=== PATIENT | female | born 1980 | race Caucasian/White ===

== ENCOUNTER 2024-08-26 16:29 | Inpatient (IN) | payer MEDICARE, MEDICAID ==
[~2024-08-26] VITALS: Ht 154.9 cm; Wt 178.5 kg
[2024-08-26] MEDS: ACETAMINOPHEN 325 MG TAB PO ONE (17:07)
[2024-08-26 17:22] LABS: BASO # 0.1 10^3/uL (0.0-0.2); BASO % 0.4 % (0.0-1.0); EOS % 0.1 % (0.0-3.0); HEMATOCRIT 40.8 % (36.0-47.0); HEMOGLOBIN 13.7 g/dl (12.0-15.5); LYMPH # 0.8 10^3/uL (1.5-5.0); LYMPH % 5.6 % (24.0-44.0); MEAN CORPUSCULAR HGB CONC 33.6 g/dl (32.0-36.5); MEAN CORPUSCULAR VOLUME 92.3 fl (80.0-96.0); MONO # 0.5 10^3/uL (0.0-0.8); MONO % 3.8 % (2.0-8.0); NEUTROPHILS % 88.5 % (36.0-66.0); PLATELET COUNT, AUTOMATED 199 10^3/uL (150-450); RED BLOOD COUNT 4.42 10^6/uL (4.00-5.40); WHITE BLOOD COUNT 13.5 10^3/uL (4.0-10.0)
[2024-08-26 17:34] LABS: INR 1.06; PARTIAL THROMBOPLASTIN TIME 31.2 SECONDS (24.8-34.2); PROTHROMBIN TIME 14.1 SECONDS (12.5-14.5)
[2024-08-26 17:36] LABS: AMORPHOUS SEDIMENT MODERATE (NEGATIVE); APPEARANCE, URINE CLOUDY (CLEAR); BACTERIA, URINE AUTO NEGATIVE (NEGATIVE); BILIRUBIN, URINE AUTO NEGATIVE (NEGATIVE); BLOOD, URINE BLOOD 3+ (NEGATIVE); COLOR, URINE AMBER (YELLOW); GLUCOSE, URINE (UA) AUTO NEGATIVE (NEGATIVE); GRANULAR CAST, URINE AUTO 4 /LPF; KETONE, URINE AUTO TRACE mg/dL (NEGATIVE); LEUKOCYTE ESTERASE, URINE AUTO NEGATIVE (NEGATIVE); MUCUS, URINE SMALL (NEGATIVE); NITRITE, URINE AUTO NEGATIVE (NEGATIVE); PROTEIN, URINE AUTO 3+ mg/dL (NEGATIVE); RBC, URINE AUTO 1 /HPF (0-3); SPECIFIC GRAVITY URINE AUTO 1.024 (1.002-1.035); SQUAMOUS EPITHELIAL CELL UR AU 4 /HPF (0-6); UROBILINOGEN, URINE AUTO 0.2 mg/dL (0.0-2.0); WBC, URINE AUTO 3 /HPF (0-3)
[2024-08-26 17:42] LABS: C REACTIVE PROTEIN QUANTITATIV 27.7 MG/DL (<1.0)
[2024-08-26 18:23] LABS: ALBUMIN 2.9 G/DL (3.2-5.2); BILIRUBIN,DIRECT 0.2 MG/DL (<0.4); BILIRUBIN,TOTAL 0.7 MG/DL (0.3-1.2); CALCIUM LEVEL 8.8 MG/DL (8.5-10.1); CREATININE FOR GFR 1.09 MG/DL (0.55-1.30); GLOMERULAR FILTRATION RATE 57.5 (>58); POTASSIUM SERUM 5.4 MMOL/L (3.5-5.1); TOTAL PROTEIN 7.9 G/DL (5.7-8.2)
[2024-08-26] MEDS: ceFAZolin SOD 2 GM in IV 1 EA IV ONE (18:28)
[2024-08-26 18:38] LABS: PROCALCITONIN 18.9 ng/ml
[2024-08-26] MEDS ORDERED: PRAV10TA3 PO (20:32)
[2024-08-26] MEDS ORDERED: JANU100T PO (20:32)
[2024-08-26] MEDS ORDERED: GLIP5TAB20 PO (20:32)
[2024-08-26] MEDS ORDERED: FAMO40TA3 PO (20:32)
[2024-08-26] MEDS ORDERED: OMEP1CAP71 PO (20:32)
[2024-08-26] MEDS ORDERED: METF750T36 PO (20:32)
[2024-08-26] MEDS ORDERED: DEBL1TAB PO (20:32)
[2024-08-26] MEDS ORDERED: HOME MED LIST COMPLETE! XX SCH (20:35)
[2024-08-26] MEDS ORDERED: MOM 30ML SUSPENSION UDC PO PRN (20:50)
[2024-08-26] MEDS ORDERED: DEXTROSE 50% 50ML SYRINGE IV PRN (21:10)
[2024-08-26] MEDS ORDERED: GLUCOSE 4 GM CHEW PO PRN (21:10)
[2024-08-26] MEDS ORDERED: GLUCAGON INJ 1MG VIAL SC PRN (21:10)
[2024-08-26] MEDS: ACETAMINOPHEN 325 MG TAB PO PRN (22:53)
[2024-08-26 23:35] VITALS: BP 102/71; TEMP 102.1; O2SAT 93
[2024-08-26] MEDS: ENOXAPARIN 60MG/0.6ML SYRINGE (J1650 PER 10MG) SC SCH (23:58)
[2024-08-27] VITALS (14 sets, daily range): BP systolic 103–176; BP diastolic 58–100; TEMP 97.7–104.7; O2SAT 91–96
[2024-08-27] MEDS: INSULIN LISPRO (NovoLOG) PER UNIT SC SCH ×2 (00:23→08:09)
[2024-08-27] MEDS: IBUPROFEN 600MG TAB PO ONE (00:54)
[2024-08-27] MEDS: NS 1,000 ML IV SCH (02:01)
[2024-08-27] MEDS: ceFAZolin SOD 2 GM in IV 1 EA IV SCH (02:01)
[2024-08-27] MEDS: ACETAMINOPHEN *IV* 1,000 MG in IV 1 EA IV ONE (02:59)
[2024-08-27 06:23] LABS: HEMATOCRIT 37.1 % (36.0-47.0); HEMOGLOBIN 12.3 g/dl (12.0-15.5); MEAN CORPUSCULAR HGB CONC 33.2 g/dl (32.0-36.5); MEAN CORPUSCULAR VOLUME 93.5 fl (80.0-96.0); PLATELET COUNT, AUTOMATED 175 10^3/uL (150-450); RED BLOOD COUNT 3.97 10^6/uL (4.00-5.40); WHITE BLOOD COUNT 15.6 10^3/uL (4.0-10.0)
[2024-08-27 06:50] LABS: ALBUMIN 2.4 G/DL (3.2-5.2); ALKALINE PHOSPHATASE 75 U/L (35-104); ALT/SGPT 143 U/L (7.0-40); AST/SGOT 829 U/L (<34); BILIRUBIN,TOTAL 0.6 MG/DL (0.3-1.2); BLOOD UREA NITROGEN 26 MG/DL (9-23); CALCIUM LEVEL 8.4 MG/DL (8.5-10.1); CARBON DIOXIDE LEVEL 24 MMOL/L (20-31); CHLORIDE LEVEL 102 MMOL/L (98-107); CREATININE FOR GFR 1.81 MG/DL (0.55-1.30); GLUCOSE, FASTING 144 MG/DL (60-100); MAGNESIUM LEVEL 1.8 MG/DL (1.8-2.4); POTASSIUM SERUM 4.2 MMOL/L (3.5-5.1); SODIUM LEVEL 137 MMOL/L (136-145); TOTAL PROTEIN 6.5 G/DL (5.7-8.2)
[2024-08-27] MEDS: PRAVASTATIN 10 MG TAB PO SCH (08:10)
[2024-08-27] MEDS: PIPERACILLIN/TAZOBACTAM SOD 3.375 GM in DEXTROSE 5% (D5W) ADV/MINI-BAG 50 ML IV SCH (08:10)
[2024-08-27] MEDS: FAMOTIDINE 20 MG TAB PO SCH (08:10)
[2024-08-27] MEDS ORDERED: LORazepam 2 MG TAB PO PRN (15:10)
[2024-08-27 15:53] LABS: HEPATITIS B SURFACE ANTIGEN NEGATIVE (NEGATIVE)
[2024-08-27] MEDS ORDERED: VANCOMYCIN HCL 500 MG in DEXTROSE 5% (D5W) MINI-BAG PLU 100 ML IV SCH (16:05)
[2024-08-27 16:13] LABS: HEPATITIS B CORE ANTIBODY IGM NEGATIVE (NEGATIVE); HEPATITIS C VIRUS ABY INDEX 0.03 INDEX (<0.8)
[2024-08-27] MEDS: MULTIVITAMINS/MINERALS THERAP 1 TAB PO SCH (16:42)
[2024-08-27] MEDS: ACETAMINOPHEN 325 MG TAB PO ONE (16:42)
[2024-08-27] MEDS: FOLIC ACID 1MG TAB PO SCH (16:43)
[2024-08-27] MEDS: THIAMINE 100 MG TAB PO SCH (16:43)
[2024-08-27] MEDS: VANCOMYCIN 2,000 MG/400 ML IV BAG *LOAD IV ONE (17:09)
[2024-08-27] MEDS: KETOROLAC 30 MG/ML 1ML VIAL IV ONE ×2 (18:27→23:54)
[2024-08-27 18:56] LABS: HEMATOCRIT 35.7 % (36.0-47.0); HEMOGLOBIN 11.9 g/dl (12.0-15.5); MEAN CORPUSCULAR HEMOGLOBIN 30.7 pg (27.0-33.0); MEAN CORPUSCULAR HGB CONC 33.3 g/dl (32.0-36.5); MEAN CORPUSCULAR VOLUME 92.2 fl (80.0-96.0); PLATELET COUNT, AUTOMATED 160 10^3/uL (150-450); RED BLOOD COUNT 3.87 10^6/uL (4.00-5.40); WHITE BLOOD COUNT 18.6 10^3/uL (4.0-10.0)
[2024-08-27 18:57] LABS: VENOUS O2 SATURATION 97.7 % (60.0-80.0); VENOUS PARTIAL PRESSURE CO2 29.9 mmHg (38.0-50.0); VENOUS PARTIAL PRESSURE O2 113.4 mmHg (30.0-50.0); VENOUS PH 7.444 UNITS (7.330-7.430)
[2024-08-27 19:28] LABS: CK-MB VALUE MASS 8.2 NG/ML (<3.6)
[2024-08-27 19:30] LABS: ALBUMIN 2.1 G/DL (3.2-5.2); BILIRUBIN,TOTAL 0.5 MG/DL (0.3-1.2); CALCIUM LEVEL 7.4 MG/DL (8.5-10.1); CREATININE FOR GFR 2.35 MG/DL (0.55-1.30); GLOMERULAR FILTRATION RATE 23.7 (>58); POTASSIUM SERUM 4.2 MMOL/L (3.5-5.1); TOTAL PROTEIN 6.3 G/DL (5.7-8.2)
[2024-08-27 20:12] LABS: MB/CK RELATIVE INDEX 0.01 (< OR =4)
[2024-08-27] MEDS: DOXYCYCLINE HYCLATE 100MG TABLET PO SCH (20:32)
[2024-08-27] MEDS: HEPARIN SOD (PORCINE) 5000UNITS/ML 1ML VIAL/SYRINGE SQ SCH (21:32)
[2024-08-27] MEDS ORDERED: ALBUTEROL SULFATE 2.5MG/0.5ML INH NEB SOLN NEB PRN (21:55)
[2024-08-27 22:31] LABS: AMPHETAMINES LEVEL URINE NEGATIVE (NEGATIVE); BARBITURATES URINE NEGATIVE (NEGATIVE); BENZODIAZEPINES URINE NEGATIVE (NEGATIVE); CANNABINOIDS URINE NEGATIVE (NEGATIVE); COCAINE METABOLITE URINE NEGATIVE (NEGATIVE); METHADONE URINE NEGATIVE (NEGATIVE); OPIATES URINE NEGATIVE (NEGATIVE); PHENCYCLIDINE URINE NEGATIVE (NEGATIVE)
[2024-08-28] VITALS (15 sets, daily range): BP systolic 125–157; BP diastolic 56–88; TEMP 97.7–99.5; O2SAT 90–96
[2024-08-28 05:19] LABS: HEMATOCRIT 35.2 % (36.0-47.0); HEMOGLOBIN 11.4 g/dl (12.0-15.5); MEAN CORPUSCULAR HEMOGLOBIN 30.6 pg (27.0-33.0); MEAN CORPUSCULAR HGB CONC 32.4 g/dl (32.0-36.5); MEAN CORPUSCULAR VOLUME 94.4 fl (80.0-96.0); PLATELET COUNT, AUTOMATED 161 10^3/uL (150-450); RED BLOOD COUNT 3.73 10^6/uL (4.00-5.40)
[2024-08-28 05:44] LABS: ALBUMIN 1.9 G/DL (3.2-5.2); BILIRUBIN,TOTAL 0.6 MG/DL (0.3-1.2); CALCIUM LEVEL 7.6 MG/DL (8.5-10.1); CREATININE FOR GFR 3.25 MG/DL (0.55-1.30); GLOMERULAR FILTRATION RATE 16.3 (>58); POTASSIUM SERUM 4.6 MMOL/L (3.5-5.1); TOTAL PROTEIN 6.2 G/DL (5.7-8.2)
[2024-08-28] MEDS ORDERED: VANCOMYCIN INTERMITTENT/PULSE DOSING BY CLINICAL PHARMACIST PER DOSING PROTOCOL XX SCH ×2 (07:00→17:25)
[2024-08-28] MEDS: NS 1,000 ML IV SCH (11:15)
[2024-08-28] MEDS ORDERED: VANCOMYCIN 1,250 MG/250 ML IV BAG IV ONE (17:00)
[2024-08-29] VITALS (9 sets, daily range): BP systolic 134–168; BP diastolic 70–78; TEMP 97.9–98.7; O2SAT 91–96
[2024-08-29 07:33] LABS: HEMATOCRIT 34.1 % (36.0-47.0); HEMOGLOBIN 11.1 g/dl (12.0-15.5); MEAN CORPUSCULAR HEMOGLOBIN 30.7 pg (27.0-33.0); MEAN CORPUSCULAR HGB CONC 32.6 g/dl (32.0-36.5); MEAN CORPUSCULAR VOLUME 94.5 fl (80.0-96.0); PLATELET COUNT, AUTOMATED 204 10^3/uL (150-450); RED BLOOD COUNT 3.61 10^6/uL (4.00-5.40); WHITE BLOOD COUNT 16.8 10^3/uL (4.0-10.0)
[2024-08-29 07:55] LABS: BILIRUBIN,TOTAL 0.5 MG/DL (0.3-1.2); CALCIUM LEVEL 7.9 MG/DL (8.5-10.1); CREATININE FOR GFR 5.39 MG/DL (0.55-1.30); GLOMERULAR FILTRATION RATE 9.1 (>58); POTASSIUM SERUM 4.5 MMOL/L (3.5-5.1); TOTAL PROTEIN 6.6 G/DL (5.7-8.2)
[2024-08-29] MEDS ORDERED: HEPARIN 1,000UNITS/ML 10ML VIAL (FOR RADIOLOGY & DIALYSIS ONLY) IV PRN (09:35)
[2024-08-29] MEDS ORDERED: SODIUM CHLORIDE 0.9% 1000 ML IV PRN (09:35)
[2024-08-29 11:09] LABS: HEPATITIS B SURFACE ANTIBODY NEGATIVE (POSITIVE)
[2024-08-29] MEDS: HEPARIN 1,000UNITS/ML 10ML VIAL (FOR RADIOLOGY & DIALYSIS ONLY) IV STA (11:10)
[2024-08-29 11:23] LABS: HEPATITIS B SURFACE ANTIGEN NEGATIVE (NEGATIVE)
[2024-08-29 11:43] LABS: HEPATITIS B CORE ANTIBODY IGM NEGATIVE (NEGATIVE); HEPATITIS C VIRUS ABY INDEX 0.02 INDEX (<0.8)
[2024-08-29] MEDS: HEPARIN 1,000UNITS/ML 10ML VIAL (FOR RADIOLOGY & DIALYSIS ONLY) XX SCH (14:40)
[2024-08-29] MEDS: VANCOMYCIN/WATER FOR INJ 1,000 MG in IV 1 EA IV SCH (17:36)
[2024-08-29] MEDS: PIPERACILLIN/TAZOBACTAM SOD 4.5 GM in DEXTROSE 5% (D5W) ADV/MINI-BAG 50 ML IV SCH (18:56)
[2024-08-30] VITALS (8 sets, daily range): BP systolic 128–164; BP diastolic 63–82; TEMP 97.4–98.6; O2SAT 91–98
[2024-08-30 05:52] LABS: BASO % 0.2 % (0.0-1.0); EOS # 0.1 10^3/uL (0.0-0.5); EOS % 0.6 % (0.0-3.0); HEMOGLOBIN 11.2 g/dl (12.0-15.5); LYMPH # 1.2 10^3/uL (1.5-5.0); LYMPH % 8.6 % (24.0-44.0); MEAN CORPUSCULAR HEMOGLOBIN 30.8 pg (27.0-33.0); MEAN CORPUSCULAR HGB CONC 32.9 g/dl (32.0-36.5); MEAN CORPUSCULAR VOLUME 93.4 fl (80.0-96.0); MONO # 0.5 10^3/uL (0.0-0.8); MONO % 3.4 % (2.0-8.0); NEUTROPHILS # 12.3 10^3/uL (1.5-8.5); NEUTROPHILS % 85.9 % (36.0-66.0); PLATELET COUNT, AUTOMATED 268 10^3/uL (150-450); RED BLOOD COUNT 3.64 10^6/uL (4.00-5.40); WHITE BLOOD COUNT 14.3 10^3/uL (4.0-10.0)
[2024-08-30] MEDS ORDERED: SODIUM CHLORIDE 0.9% 1000 ML IV PRN (06:00)
[2024-08-30] MEDS ORDERED: HEPARIN 1,000UNITS/ML 10ML VIAL (FOR RADIOLOGY & DIALYSIS ONLY) IV PRN (06:00)
[2024-08-30 06:14] LABS: VANCOMYCIN RANDOM 25.9 UG/ML
[2024-08-30 06:16] LABS: BILIRUBIN,TOTAL 0.5 MG/DL (0.3-1.2); CALCIUM LEVEL 8.4 MG/DL (8.5-10.1); CREATININE FOR GFR 5.45 MG/DL (0.55-1.30); TOTAL PROTEIN 6.5 G/DL (5.7-8.2)
[2024-08-30] MEDS: HEPARIN 1,000UNITS/ML 10ML VIAL (FOR RADIOLOGY & DIALYSIS ONLY) XX SCH (15:41)
[2024-08-30 16:13] LABS: PROCALCITONIN 18.69 ng/ml
[2024-08-31] VITALS (7 sets, daily range): BP systolic 132–169; BP diastolic 72–93; TEMP 97.2–98.4; O2SAT 94–97
[2024-08-31] MEDS ORDERED: SODIUM CHLORIDE 0.9% 1000 ML IV PRN (06:00)
[2024-08-31] MEDS ORDERED: HEPARIN 1,000UNITS/ML 10ML VIAL (FOR RADIOLOGY & DIALYSIS ONLY) IV PRN (06:00)
[2024-08-31] MEDS: HEPARIN 1,000UNITS/ML 10ML VIAL (FOR RADIOLOGY & DIALYSIS ONLY) XX SCH (09:51)
[2024-08-31 18:07] LABS: BASO % 0.3 % (0.0-1.0); EOS # 0.1 10^3/uL (0.0-0.5); EOS % 1.1 % (0.0-3.0); HEMATOCRIT 36.8 % (36.0-47.0); HEMOGLOBIN 12.3 g/dl (12.0-15.5); LYMPH % 7.4 % (24.0-44.0); MEAN CORPUSCULAR HEMOGLOBIN 30.7 pg (27.0-33.0); MEAN CORPUSCULAR HGB CONC 33.4 g/dl (32.0-36.5); MEAN CORPUSCULAR VOLUME 91.8 fl (80.0-96.0); MONO # 0.4 10^3/uL (0.0-0.8); MONO % 2.7 % (2.0-8.0); NEUTROPHILS # 11.5 10^3/uL (1.5-8.5); NEUTROPHILS % 87.2 % (36.0-66.0); PLATELET COUNT, AUTOMATED 304 10^3/uL (150-450); RED BLOOD COUNT 4.01 10^6/uL (4.00-5.40); WHITE BLOOD COUNT 13.2 10^3/uL (4.0-10.0)
[2024-08-31 18:11] LABS: C REACTIVE PROTEIN QUANTITATIV 10.1 MG/DL (<1.0)
[2024-08-31 18:12] LABS: VANCOMYCIN RANDOM 15.4 UG/ML
[2024-08-31 18:15] LABS: ALBUMIN 2.2 G/DL (3.2-5.2); BILIRUBIN,TOTAL 0.4 MG/DL (0.3-1.2); CALCIUM LEVEL 8.4 MG/DL (8.5-10.1); CREATININE FOR GFR 5.08 MG/DL (0.55-1.30); GLOMERULAR FILTRATION RATE 9.7 (>58); POTASSIUM SERUM 3.9 MMOL/L (3.5-5.1); TOTAL PROTEIN 7.1 G/DL (5.7-8.2)
[2024-08-31] MEDS: VANCOMYCIN HCL 500 MG in DEXTROSE 5% (D5W) MINI-BAG PLU 100 ML IV ONE (18:49)
[2024-09-01] VITALS: BP 149/87; TEMP 97.7; O2SAT 95
[2024-09-01 04:06] VITALS: BP 144/82; TEMP 97.7; O2SAT 95
[2024-09-01 04:50] LABS: HEMATOCRIT 37.6 % (36.0-47.0); HEMOGLOBIN 12.5 g/dl (12.0-15.5); MEAN CORPUSCULAR HEMOGLOBIN 30.6 pg (27.0-33.0); MEAN CORPUSCULAR HGB CONC 33.2 g/dl (32.0-36.5); MEAN CORPUSCULAR VOLUME 91.9 fl (80.0-96.0); PLATELET COUNT, AUTOMATED 285 10^3/uL (150-450); RED BLOOD COUNT 4.09 10^6/uL (4.00-5.40); WHITE BLOOD COUNT 10.8 10^3/uL (4.0-10.0)
[2024-09-01 05:24] LABS: C REACTIVE PROTEIN QUANTITATIV 7.3 MG/DL (<1.0); VANCOMYCIN RANDOM 20.3 UG/ML
[2024-09-01 06:01] LABS: BILIRUBIN,TOTAL 0.4 MG/DL (0.3-1.2); CALCIUM LEVEL 8.4 MG/DL (8.5-10.1); CREATININE FOR GFR 6.06 MG/DL (0.55-1.30); GLOMERULAR FILTRATION RATE 7.9 (>58); PHOSPHORUS LEVEL 5.9 MG/DL (2.5-4.9); POTASSIUM SERUM 3.9 MMOL/L (3.5-5.1); TOTAL PROTEIN 6.5 G/DL (5.7-8.2)
[2024-09-01 08:44] VITALS: BP 140/86; TEMP 97.7
[2024-09-01] MEDS ORDERED: HEPARIN 1,000UNITS/ML 10ML VIAL (FOR RADIOLOGY & DIALYSIS ONLY) IV PRN (10:00)
[2024-09-01] MEDS ORDERED: LIDOCAINE 1% SDV 5ML VIAL SC PRN (10:00)
[2024-09-01] MEDS ORDERED: SODIUM CHLORIDE 0.9% 1000 ML IV PRN (10:00)
[2024-09-01] MEDS: HEPARIN 1,000UNITS/ML 10ML VIAL (FOR RADIOLOGY & DIALYSIS ONLY) XX SCH (12:06)
[2024-09-01 15:17] VITALS: BP 140/88; TEMP 98.2
[2024-09-01] MEDS: VANCOMYCIN HCL 500 MG in DEXTROSE 5% (D5W) MINI-BAG PLU 100 ML IV SCH (16:02)
[2024-09-01 20:23] VITALS: BP 156/82; TEMP 98.2; O2SAT 94
[2024-09-02 00:43] VITALS: BP 145/78; TEMP 97.9; O2SAT 96
[2024-09-02 04:55] VITALS: BP 144/78; TEMP 97.9; O2SAT 96
[2024-09-02 05:24] LABS: VANCOMYCIN RANDOM 19.9 UG/ML
[2024-09-02 05:26] LABS: BILIRUBIN,TOTAL 0.4 MG/DL (0.3-1.2); CALCIUM LEVEL 8.7 MG/DL (8.5-10.1); CREATININE FOR GFR 6.07 MG/DL (0.55-1.30); GLOMERULAR FILTRATION RATE 7.9 (>58); MAGNESIUM LEVEL 2.2 MG/DL (1.8-2.4); PHOSPHORUS LEVEL 6.5 MG/DL (2.5-4.9); TOTAL PROTEIN 6.5 G/DL (5.7-8.2)
[2024-09-02] MEDS ORDERED: SODIUM CHLORIDE 0.9% 1000 ML IV PRN (06:00)
[2024-09-02] MEDS ORDERED: HEPARIN 1,000UNITS/ML 10ML VIAL (FOR RADIOLOGY & DIALYSIS ONLY) IV PRN (06:00)
[2024-09-02] MEDS ORDERED: LIDOCAINE 1% SDV 5ML VIAL SC PRN (06:00)
[2024-09-02] MEDS: HEPARIN 1,000UNITS/ML 10ML VIAL (FOR RADIOLOGY & DIALYSIS ONLY) XX SCH (08:45)
[2024-09-02 11:40] VITALS: BP 147/79; TEMP 97.3; O2SAT 98
[2024-09-02 16:00] VITALS: BP 151/82; TEMP 97.4; O2SAT 97
[2024-09-02 20:16] VITALS: BP 161/108; TEMP 97.9; O2SAT 100
[2024-09-03] VITALS (7 sets, daily range): BP systolic 138–156; BP diastolic 72–86; TEMP 97.7–98.8; O2SAT 95–99
[2024-09-03] MEDS: NEPHRO-VIT TAB (NEPHROCAPS) PO SCH (08:13)
[2024-09-03] MEDS: PANTOPRAZOLE 40MG TAB (PROTONIX) PO SCH (08:13)
[2024-09-03] MEDS: LORATADINE 10 MG TAB PO SCH (18:26)
[2024-09-04 00:10] VITALS: BP 145/86; TEMP 98.8; O2SAT 97
[2024-09-04 04:39] VITALS: BP 153/76; TEMP 98.6; O2SAT 98
[2024-09-04] MEDS ORDERED: LIDOCAINE 1% SDV 5ML VIAL SC PRN (06:00)
[2024-09-04] MEDS ORDERED: HEPARIN 1,000UNITS/ML 10ML VIAL (FOR RADIOLOGY & DIALYSIS ONLY) IV PRN (06:00)
[2024-09-04] MEDS ORDERED: SODIUM CHLORIDE 0.9% 1000 ML IV PRN (06:00)
[2024-09-04 06:05] LABS: BASO % 0.2 % (0.0-1.0); EOS # 0.2 10^3/uL (0.0-0.5); EOS % 1.8 % (0.0-3.0); HEMATOCRIT 33.1 % (36.0-47.0); HEMOGLOBIN 10.7 g/dl (12.0-15.5); LYMPH # 0.7 10^3/uL (1.5-5.0); MEAN CORPUSCULAR HGB CONC 32.3 g/dl (32.0-36.5); MEAN CORPUSCULAR VOLUME 92.7 fl (80.0-96.0); MONO # 0.3 10^3/uL (0.0-0.8); MONO % 2.8 % (2.0-8.0); NEUTROPHILS # 10.7 10^3/uL (1.5-8.5); NEUTROPHILS % 88.5 % (36.0-66.0); PLATELET COUNT, AUTOMATED 286 10^3/uL (150-450); RED BLOOD COUNT 3.57 10^6/uL (4.00-5.40); WHITE BLOOD COUNT 12.1 10^3/uL (4.0-10.0)
[2024-09-04 06:28] LABS: VANCOMYCIN RANDOM 16.7 UG/ML
[2024-09-04 06:30] LABS: C REACTIVE PROTEIN QUANTITATIV 3.9 MG/DL (<1.0)
[2024-09-04 06:41] LABS: ALBUMIN 2.2 G/DL (3.2-5.2); BILIRUBIN,TOTAL 0.4 MG/DL (0.3-1.2); CALCIUM LEVEL 8.5 MG/DL (8.5-10.1); CREATININE FOR GFR 10.52 MG/DL (0.55-1.30); GLOMERULAR FILTRATION RATE 4.2 (>58); POTASSIUM SERUM 4.3 MMOL/L (3.5-5.1); TOTAL PROTEIN 6.3 G/DL (5.7-8.2)
[2024-09-04 07:50] VITALS: BP 152/89; TEMP 98.8; O2SAT 97
[2024-09-04] MEDS ORDERED: NS 1,000 ML IV SCH (08:50)
[2024-09-04] MEDS ORDERED: HEPARIN 1,000UNITS/ML 10ML VIAL (FOR RADIOLOGY & DIALYSIS ONLY) As Ordered ONE (09:54)
[2024-09-04] MEDS ORDERED: LIDOCAINE 1% MDV 20ML VIAL As Ordered ONE (09:54)
[2024-09-04 10:00] VITALS: BP 183/78; TEMP 99.3; O2SAT 100
[2024-09-04] MEDS ORDERED: MIDAZOLAM INJ 2MG/2ML VIAL As Ordered ONE (10:48)
[2024-09-04] MEDS ORDERED: fentaNYL 100 MCG/2 ML INJECTION As Ordered ONE (10:48)
[2024-09-04] MEDS ORDERED: hydrALAZINE 20MG/ML 1ML VIAL As Ordered ONE (11:08)
[2024-09-04] MEDS ORDERED: ISOVUE-300 61% 100ML VIAL As Ordered ONE (11:39)
[2024-09-04] MEDS: HEPARIN 1,000UNITS/ML 10ML VIAL (FOR RADIOLOGY & DIALYSIS ONLY) XX SCH (14:38)
[2024-09-04 17:00] VITALS: BP 157/88; TEMP 98.9; O2SAT 97
[2024-09-04] MEDS: ACETAMINOPHEN 325 MG TAB PO PRN (17:01)
[2024-09-04] MEDS: VANCOMYCIN 750MG/150 ML IV BAG IV SCH (18:39)
[2024-09-04] MEDS: diphenhydrAMINE 25MG CAP PO SCH (18:49)
[2024-09-04 20:00] VITALS: BP 162/64; TEMP 97.8; O2SAT 97
[2024-09-05 04:00] VITALS: BP 143/70; TEMP 98.8; O2SAT 96
[2024-09-05] MEDS ORDERED: LIDOCAINE 1% SDV 5ML VIAL SC PRN (06:00)
[2024-09-05] MEDS ORDERED: SODIUM CHLORIDE 0.9% 250ML IV PRN (06:00)
[2024-09-05] MEDS ORDERED: HEPARIN 1,000UNITS/ML 10ML VIAL (FOR RADIOLOGY & DIALYSIS ONLY) IV PRN (06:00)
[2024-09-05 08:00] VITALS: BP 142/87; TEMP 99; O2SAT 99
[2024-09-05] MEDS: methylPREDNISolone 125MG 2ML VIAL IV ONE (08:19)
[2024-09-05] MEDS: HEPARIN 1,000UNITS/ML 10ML VIAL (FOR RADIOLOGY & DIALYSIS ONLY) XX SCH (10:55)
[2024-09-05 13:00] VITALS: BP 144/84; TEMP 98.1; O2SAT 97
[2024-09-05] MEDS: predniSONE 20 MG TAB PO SCH (13:40)
[2024-09-05] MEDS: TRIAMCINOLONE ACETONIDE 0.025% 80GM CREAM TOP SCH (13:43)
[2024-09-05] MEDS: diphenhydrAMINE CREAM 30GM TOP SCH (13:44)
[2024-09-05 16:00] VITALS: BP 144/80; TEMP 97.9; O2SAT 96
[2024-09-05] MEDS: SANTYL OINT 30GM TOP SCH (17:56)
[2024-09-05 20:58] VITALS: BP 139/71; TEMP 98.1; O2SAT 94
[2024-09-06] VITALS: BP 133/64; TEMP 98.1; O2SAT 93
[2024-09-06 04:00] VITALS: BP 141/75; TEMP 97.9; O2SAT 96
[2024-09-06] MEDS ORDERED: SODIUM CHLORIDE 0.9% 1000 ML IV PRN (06:00)
[2024-09-06] MEDS ORDERED: LIDOCAINE 1% SDV 5ML VIAL SC PRN (06:00)
[2024-09-06] MEDS ORDERED: HEPARIN 1,000UNITS/ML 10ML VIAL (FOR RADIOLOGY & DIALYSIS ONLY) IV PRN (06:00)
[2024-09-06] MEDS: FAMOTIDINE 20 MG TAB PO SCH (07:44)
[2024-09-06 08:00] VITALS: BP 141/75; TEMP 97.7; O2SAT 97
[2024-09-06] MEDS: HEPARIN 1,000UNITS/ML 10ML VIAL (FOR RADIOLOGY & DIALYSIS ONLY) XX SCH (11:11)
[2024-09-06 15:56] LABS: CALCIUM LEVEL 8.5 MG/DL (8.5-10.1); CREATININE FOR GFR 3.79 MG/DL (0.55-1.30); GLOMERULAR FILTRATION RATE 13.7 (>58); POTASSIUM SERUM 3.7 MMOL/L (3.5-5.1)
[2024-09-06 16:00] VITALS: BP 138/72; TEMP 97.6; O2SAT 97
[2024-09-06 16:07] LABS: BASO # 0.1 10^3/uL (0.0-0.2); BASO % 0.2 % (0.0-1.0); HEMATOCRIT 32.5 % (36.0-47.0); HEMOGLOBIN 11.3 g/dl (12.0-15.5); LYMPH # 0.8 10^3/uL (1.5-5.0); LYMPH % 2.8 % (24.0-44.0); MEAN CORPUSCULAR HEMOGLOBIN 31.4 pg (27.0-33.0); MEAN CORPUSCULAR HGB CONC 34.8 g/dl (32.0-36.5); MEAN CORPUSCULAR VOLUME 90.3 fl (80.0-96.0); MONO # 0.5 10^3/uL (0.0-0.8); MONO % 1.8 % (2.0-8.0); NEUTROPHILS # 25.2 10^3/uL (1.5-8.5); NEUTROPHILS % 94.2 % (36.0-66.0); PLATELET COUNT, AUTOMATED 276 10^3/uL (150-450); WHITE BLOOD COUNT 26.8 10^3/uL (4.0-10.0)
[2024-09-06 21:08] VITALS: BP 143/78; TEMP 97.7; O2SAT 95
[2024-09-07] VITALS (7 sets, daily range): BP systolic 118–155; BP diastolic 60–92; TEMP 97.5–97.9; O2SAT 94–98
[2024-09-07 06:31] LABS: ALBUMIN 2.6 G/DL (3.2-5.2); CALCIUM LEVEL 8.8 MG/DL (8.5-10.1); CREATININE FOR GFR 5.42 MG/DL (0.55-1.30); PHOSPHORUS LEVEL 8.9 MG/DL (2.5-4.9); POTASSIUM SERUM 3.6 MMOL/L (3.5-5.1)
[2024-09-07 09:33] LABS: BASO # 0.1 10^3/uL (0.0-0.2); BASO % 0.3 % (0.0-1.0); EOS # 0.3 10^3/uL (0.0-0.5); EOS % 1.8 % (0.0-3.0); HEMATOCRIT 34.8 % (36.0-47.0); HEMOGLOBIN 11.7 g/dl (12.0-15.5); LYMPH # 1.4 10^3/uL (1.5-5.0); LYMPH % 8.3 % (24.0-44.0); MEAN CORPUSCULAR HEMOGLOBIN 30.8 pg (27.0-33.0); MEAN CORPUSCULAR HGB CONC 33.6 g/dl (32.0-36.5); MEAN CORPUSCULAR VOLUME 91.6 fl (80.0-96.0); MONO # 0.7 10^3/uL (0.0-0.8); MONO % 4.1 % (2.0-8.0); NEUTROPHILS # 14.6 10^3/uL (1.5-8.5); PLATELET COUNT, AUTOMATED 320 10^3/uL (150-450); WHITE BLOOD COUNT 17.1 10^3/uL (4.0-10.0)
[2024-09-07 09:41] LABS: ERYTHROCYTE SEDIMENTATION RATE 84 mm/hr (0-20)
[2024-09-07 09:45] LABS: BILIRUBIN,TOTAL 0.4 MG/DL (0.3-1.2); PROCALCITONIN 6.48 ng/ml; TOTAL PROTEIN 7.3 G/DL (5.7-8.2)
[2024-09-07] MEDS: (RENVELA) SEVELAMER **CARBONate** 800 MG TAB PO SCH (12:55)
[2024-09-08 00:02] VITALS: BP 148/87; TEMP 97.9; O2SAT 97
[2024-09-08 04:42] VITALS: BP 138/70; TEMP 97.7; O2SAT 98
[2024-09-08 05:01] LABS: BASO % 0.3 % (0.0-1.0); EOS # 0.1 10^3/uL (0.0-0.5); EOS % 0.9 % (0.0-3.0); HEMATOCRIT 32.4 % (36.0-47.0); HEMOGLOBIN 10.7 g/dl (12.0-15.5); LYMPH # 1.5 10^3/uL (1.5-5.0); LYMPH % 10.1 % (24.0-44.0); MEAN CORPUSCULAR HEMOGLOBIN 30.4 pg (27.0-33.0); MONO # 0.7 10^3/uL (0.0-0.8); MONO % 4.7 % (2.0-8.0); NEUTROPHILS % 83.4 % (36.0-66.0); PLATELET COUNT, AUTOMATED 266 10^3/uL (150-450); RED BLOOD COUNT 3.52 10^6/uL (4.00-5.40); WHITE BLOOD COUNT 14.3 10^3/uL (4.0-10.0)
[2024-09-08 05:35] LABS: CALCIUM LEVEL 8.7 MG/DL (8.5-10.1); CREATININE FOR GFR 8.32 MG/DL (0.55-1.30); GLOMERULAR FILTRATION RATE 5.5 (>58); POTASSIUM SERUM 3.6 MMOL/L (3.5-5.1)
[2024-09-08] MEDS ORDERED: HEPARIN 1,000UNITS/ML 10ML VIAL (FOR RADIOLOGY & DIALYSIS ONLY) IV PRN (06:00)
[2024-09-08] MEDS ORDERED: LIDOCAINE 1% SDV 5ML VIAL SC PRN (06:00)
[2024-09-08] MEDS ORDERED: SODIUM CHLORIDE 0.9% 1000 ML IV PRN (06:00)
[2024-09-08] MEDS: LEVEMIR (INSULIN DETEMIR) 1 UNITS/0.01ML SC ONE (11:23)
[2024-09-08 11:32] LABS: HEMOGLOBIN A1c 7.6 % (4.0-6.0)
[2024-09-08] MEDS: INSULIN LISPRO (NovoLOG) PER UNIT SC SCH (12:38)
[2024-09-08] MEDS: HEPARIN 1,000UNITS/ML 10ML VIAL (FOR RADIOLOGY & DIALYSIS ONLY) XX SCH (15:29)
[2024-09-08 17:30] VITALS: BP 151/84; TEMP 97.7; O2SAT 96
[2024-09-09 04:00] VITALS: BP 133/67; TEMP 97.7; O2SAT 95
[2024-09-09 05:16] LABS: BASO # 0.1 10^3/uL (0.0-0.2); BASO % 0.4 % (0.0-1.0); EOS # 0.1 10^3/uL (0.0-0.5); EOS % 0.7 % (0.0-3.0); HEMATOCRIT 35.8 % (36.0-47.0); HEMOGLOBIN 11.9 g/dl (12.0-15.5); LYMPH # 1.7 10^3/uL (1.5-5.0); LYMPH % 11.8 % (24.0-44.0); MEAN CORPUSCULAR HEMOGLOBIN 30.4 pg (27.0-33.0); MEAN CORPUSCULAR HGB CONC 33.2 g/dl (32.0-36.5); MEAN CORPUSCULAR VOLUME 91.3 fl (80.0-96.0); MONO # 0.6 10^3/uL (0.0-0.8); MONO % 4.2 % (2.0-8.0); NEUTROPHILS # 11.7 10^3/uL (1.5-8.5); NEUTROPHILS % 82.2 % (36.0-66.0); PLATELET COUNT, AUTOMATED 289 10^3/uL (150-450); RED BLOOD COUNT 3.92 10^6/uL (4.00-5.40); WHITE BLOOD COUNT 14.2 10^3/uL (4.0-10.0)
[2024-09-09 05:40] LABS: CALCIUM LEVEL 8.7 MG/DL (8.5-10.1); CREATININE FOR GFR 6.1 MG/DL (0.55-1.30); GLOMERULAR FILTRATION RATE 7.9 (>58); POTASSIUM SERUM 3.6 MMOL/L (3.5-5.1)
[2024-09-09] MEDS ORDERED: HEPARIN 1,000UNITS/ML 10ML VIAL (FOR RADIOLOGY & DIALYSIS ONLY) IV PRN (06:00)
[2024-09-09] MEDS ORDERED: SODIUM CHLORIDE 0.9% 1000 ML IV PRN (06:00)
[2024-09-09] MEDS ORDERED: PILL CUTTER 1 EACH XX ONE (06:02)
[2024-09-09] MEDS: HEPARIN 1,000UNITS/ML 10ML VIAL (FOR RADIOLOGY & DIALYSIS ONLY) XX SCH (09:49)
[2024-09-10 04:40] VITALS: BP 127/72; TEMP 97.9; O2SAT 96
[2024-09-10 06:24] LABS: BASO # 0.1 10^3/uL (0.0-0.2); BASO % 0.5 % (0.0-1.0); EOS # 0.3 10^3/uL (0.0-0.5); EOS % 2.2 % (0.0-3.0); HEMOGLOBIN 12.6 g/dl (12.0-15.5); LYMPH # 1.7 10^3/uL (1.5-5.0); MEAN CORPUSCULAR HEMOGLOBIN 30.6 pg (27.0-33.0); MEAN CORPUSCULAR HGB CONC 32.3 g/dl (32.0-36.5); MEAN CORPUSCULAR VOLUME 94.7 fl (80.0-96.0); MONO # 0.9 10^3/uL (0.0-0.8); MONO % 6.8 % (2.0-8.0); NEUTROPHILS # 9.9 10^3/uL (1.5-8.5); NEUTROPHILS % 76.5 % (36.0-66.0); PLATELET COUNT, AUTOMATED 232 10^3/uL (150-450); RED BLOOD COUNT 4.12 10^6/uL (4.00-5.40)
[2024-09-10 06:55] LABS: CALCIUM LEVEL 9.5 MG/DL (8.5-10.1); CREATININE FOR GFR 6.34 MG/DL (0.55-1.30); GLOMERULAR FILTRATION RATE 7.5 (>58); POTASSIUM SERUM 3.8 MMOL/L (3.5-5.1)
[2024-09-11 04:30] VITALS: BP 127/66; TEMP 98.2; O2SAT 99
[2024-09-11 05:13] LABS: BASO # 0.1 10^3/uL (0.0-0.2); BASO % 0.4 % (0.0-1.0); EOS # 0.4 10^3/uL (0.0-0.5); EOS % 3.3 % (0.0-3.0); HEMATOCRIT 38.1 % (36.0-47.0); HEMOGLOBIN 12.4 g/dl (12.0-15.5); LYMPH # 1.9 10^3/uL (1.5-5.0); LYMPH % 17.2 % (24.0-44.0); MEAN CORPUSCULAR HEMOGLOBIN 30.9 pg (27.0-33.0); MEAN CORPUSCULAR HGB CONC 32.5 g/dl (32.0-36.5); MONO # 0.6 10^3/uL (0.0-0.8); MONO % 5.5 % (2.0-8.0); NEUTROPHILS # 8.2 10^3/uL (1.5-8.5); NEUTROPHILS % 72.8 % (36.0-66.0); PLATELET COUNT, AUTOMATED 203 10^3/uL (150-450); RED BLOOD COUNT 4.01 10^6/uL (4.00-5.40); WHITE BLOOD COUNT 11.3 10^3/uL (4.0-10.0)
[2024-09-11 05:58] LABS: CALCIUM LEVEL 9.1 MG/DL (8.5-10.1); CREATININE FOR GFR 8.51 MG/DL (0.55-1.30); GLOMERULAR FILTRATION RATE 5.4 (>58); POTASSIUM SERUM 4.5 MMOL/L (3.5-5.1)
[2024-09-11] MEDS ORDERED: HEPARIN 1,000UNITS/ML 10ML VIAL (FOR RADIOLOGY & DIALYSIS ONLY) IV PRN (07:20)
[2024-09-11] MEDS ORDERED: SODIUM CHLORIDE 0.9% 1000 ML IV PRN (07:20)
[2024-09-11 10:48] LABS: HEMOGLOBIN 11.4 g/dl (12.0-15.5); MEAN CORPUSCULAR HEMOGLOBIN 30.7 pg (27.0-33.0); MEAN CORPUSCULAR HGB CONC 32.6 g/dl (32.0-36.5); MEAN CORPUSCULAR VOLUME 94.3 fl (80.0-96.0); PLATELET COUNT, AUTOMATED 180 10^3/uL (150-450); RED BLOOD COUNT 3.71 10^6/uL (4.00-5.40); WHITE BLOOD COUNT 9.3 10^3/uL (4.0-10.0)
[2024-09-11 12:00] VITALS: BP 130/66; TEMP 97.2; O2SAT 99
[2024-09-11 12:34] LABS: CREATININE FOR GFR 9.13 MG/DL (0.55-1.30); POTASSIUM SERUM 4.2 MMOL/L (3.5-5.1)
[2024-09-11] MEDS: HEPARIN 1,000UNITS/ML 10ML VIAL (FOR RADIOLOGY & DIALYSIS ONLY) XX SCH (14:30)
[2024-09-12 03:36] VITALS: BP 130/65; TEMP 97.7; O2SAT 94
[2024-09-12 05:08] LABS: BASO # 0.1 10^3/uL (0.0-0.2); BASO % 0.5 % (0.0-1.0); EOS # 0.3 10^3/uL (0.0-0.5); EOS % 3.4 % (0.0-3.0); HEMATOCRIT 37.7 % (36.0-47.0); HEMOGLOBIN 12.3 g/dl (12.0-15.5); LYMPH # 1.3 10^3/uL (1.5-5.0); LYMPH % 14.3 % (24.0-44.0); MEAN CORPUSCULAR HEMOGLOBIN 30.5 pg (27.0-33.0); MEAN CORPUSCULAR HGB CONC 32.6 g/dl (32.0-36.5); MEAN CORPUSCULAR VOLUME 93.5 fl (80.0-96.0); MONO # 0.6 10^3/uL (0.0-0.8); MONO % 6.7 % (2.0-8.0); NEUTROPHILS # 6.9 10^3/uL (1.5-8.5); NEUTROPHILS % 73.8 % (36.0-66.0); PLATELET COUNT, AUTOMATED 154 10^3/uL (150-450); RED BLOOD COUNT 4.03 10^6/uL (4.00-5.40); WHITE BLOOD COUNT 9.4 10^3/uL (4.0-10.0)
[2024-09-12 05:37] LABS: CALCIUM LEVEL 9.5 MG/DL (8.5-10.1); CREATININE FOR GFR 6.33 MG/DL (0.55-1.30); GLOMERULAR FILTRATION RATE 7.6 (>58); POTASSIUM SERUM 4.5 MMOL/L (3.5-5.1)
[2024-09-13 05:56] VITALS: BP 159/80; TEMP 97.5; O2SAT 98
[2024-09-13] MEDS ORDERED: SODIUM CHLORIDE 0.9% 1000 ML IV PRN (06:00)
[2024-09-13] MEDS ORDERED: HEPARIN 1,000UNITS/ML 10ML VIAL (FOR RADIOLOGY & DIALYSIS ONLY) IV PRN (06:00)
[2024-09-13 06:09] LABS: BASO # 0.1 10^3/uL (0.0-0.2); BASO % 0.7 % (0.0-1.0); EOS # 0.6 10^3/uL (0.0-0.5); EOS % 6.5 % (0.0-3.0); HEMATOCRIT 40.5 % (36.0-47.0); HEMOGLOBIN 12.5 g/dl (12.0-15.5); LYMPH # 1.3 10^3/uL (1.5-5.0); LYMPH % 14.8 % (24.0-44.0); MEAN CORPUSCULAR HEMOGLOBIN 30.4 pg (27.0-33.0); MEAN CORPUSCULAR HGB CONC 30.9 g/dl (32.0-36.5); MEAN CORPUSCULAR VOLUME 98.5 fl (80.0-96.0); MONO # 0.6 10^3/uL (0.0-0.8); MONO % 7.2 % (2.0-8.0); NEUTROPHILS # 6.1 10^3/uL (1.5-8.5); NEUTROPHILS % 69.9 % (36.0-66.0); PLATELET COUNT, AUTOMATED 149 10^3/uL (150-450); RED BLOOD COUNT 4.11 10^6/uL (4.00-5.40); WHITE BLOOD COUNT 8.7 10^3/uL (4.0-10.0)
[2024-09-13 06:40] LABS: CALCIUM LEVEL 9.7 MG/DL (8.5-10.1); CREATININE FOR GFR 8.94 MG/DL (0.55-1.30); GLOMERULAR FILTRATION RATE 5.1 (>58); POTASSIUM SERUM 4.8 MMOL/L (3.5-5.1)
[2024-09-13] MEDS: HEPARIN 1,000UNITS/ML 10ML VIAL (FOR RADIOLOGY & DIALYSIS ONLY) XX SCH (09:50)
[2024-09-13] MEDS ORDERED: RENV2TAB PO (13:48)
[2024-09-13] MEDS ORDERED: FOLI1TAB11 PO (13:48)
[2024-09-13] MEDS ORDERED: LANC30MI XX (13:49)
[2024-09-13] MEDS ORDERED: BLOOKIT21 XX (13:49)
[2024-09-13] MEDS ORDERED: PEN-308 SC (13:49)
[2024-09-13] MEDS ORDERED: GLUC1TES2 XX (13:49)
[2024-09-13] MEDS ORDERED: ALCOPAD25 TOP (13:49)
[2024-09-13] MEDS ORDERED: NOVOINJ3 SC (13:54)
== END 2024-09-13 16:16 | disposition home health service (06) | DRG 872 ==
LOC: M ED 16:29 → M ED INP 20:49 → M MSPAV 23:35 → M ICU 08-27 18:54 → M PCU 08-28 11:43 → M MSPAV 08-31 16:49
PROVIDERS: ADMIT Internal Medicine; ATTEND Student in an Organized Health Care Education/Training Program
PROC: 02HV33Z Insertion of Infusion Device into Superior Vena Cava, Percutaneous Approach (ICD-10-PCS; principal; 2024-08-29)
PROC: 05PYX3Z Removal of Infusion Device from Upper Vein, External Approach (ICD-10-PCS; 2024-09-01)
PROC: 05H Upper Veins, Insertion (ICD-10-PCS; 2024-09-01)
PROC: 0JH60XZ Insertion of Tunneled Vascular Access Device into Chest Subcutaneous Tissue and Fascia, Open Approach (ICD-10-PCS; 2024-09-04)
PROC: 5A1D70Z Performance of Urinary Filtration, Intermittent, Less than 6 Hours Per Day (ICD-10-PCS; 2024-09-09)
PROC: B246ZZZ Ultrasonography of Right and Left Heart (ICD-10-PCS; 2024-09-11)
DX: A41.9 Sepsis, unspecified organism (principal); N17.9 Acute kidney failure, unspecified; L03.116 Cellulitis of left lower limb; M62.82 Rhabdomyolysis; E87.20 Acidosis, unspecified; Z68.45 Body mass index [BMI] 70 or greater, adult; L97.929 Non-pressure chronic ulcer of unspecified part of left lower leg with unspecified severity; E11.649 Type 2 diabetes mellitus with hypoglycemia without coma; I89.0 Lymphedema, not elsewhere classified; E78.5 Hyperlipidemia, unspecified; R65.20 Severe sepsis without septic shock; K21.9 Gastro-esophageal reflux disease without esophagitis; F10.10 Alcohol abuse, uncomplicated; E66.01 Morbid (severe) obesity due to excess calories; I10 Essential (primary) hypertension; D64.9 Anemia, unspecified; Z79.84 Long term (current) use of oral hypoglycemic drugs; Z79.899 Other long term (current) drug therapy

== ENCOUNTER 2025-05-01 08:45 | Inpatient (IN) | payer MEDICARE, MEDICAID ==
[~2025-05-01] VITALS: Ht 154.9 cm; Wt 137.4 kg
[~2025-05-01 08:45] MED LIST: ALCOPAD25 TOP; BLOOKIT21 XX; DEBL1TAB PO; FAMO40TA3 PO; FOLI1TAB11 PO; GLIP-318 PO; GLUC1TES2 XX; JANU100T PO; LANC30MI XX; METF750T36 PO; NOVOINJ3 SC; OMEP1CAP71 PO; PEN-308 SC; PRAV10TA43 PO; RENV2TAB PO
[2025-05-01] MEDS: NS 500 ML IV ONE (09:15)
[2025-05-01] MEDS ORDERED: HEPARIN 1,000 UNITS/ML 10 ML VIAL (FOR RADIOLOGY & DIALYSIS ONLY) IV PRN (09:35)
[2025-05-01 09:39] LABS: BASO # 0.0 10^3/uL (0.0-0.2); BASO % 0.3 % (0.0-1.0); EOS # 0.0 10^3/uL (0.0-0.5); EOS % 0.3 % (0.0-3.0); LYMPH # 0.4 10^3/uL (1.5-5.0); LYMPH % 2.7 % (24.0-44.0); MONO # 0.8 10^3/uL (0.0-0.8); MONO % 5.0 % (2.0-8.0); NEUTROPHILS # 13.6 10^3/uL (1.5-8.5); NEUTROPHILS % 91.2 % (36.0-66.0); PLATELET COUNT, AUTOMATED 179 10^3/uL (150-450)
[2025-05-01] MEDS ORDERED: TORS100T PO (09:41)
[2025-05-01] MEDS ORDERED: OMEP10CASR PO (09:41)
[2025-05-01] MEDS: ACETAMINOPHEN 325 MG TAB PO ONE (09:42)
[2025-05-01] MEDS ORDERED: NOVOINJ3 SC (09:43)
[2025-05-01] MEDS ORDERED: HOME MED LIST COMPLETE! XX SCH (09:45)
[2025-05-01 09:53] LABS: INR 1.15
[2025-05-01 10:07] LABS: ALT/SGPT 13.0 U/L (7.0-40); AST/SGOT 20.0 U/L (<34); CALCIUM LEVEL 9.0 MG/DL (8.5-10.1); CARBON DIOXIDE LEVEL 22.0 MMOL/L (20-31); CHLORIDE LEVEL 96.0 MMOL/L (98-107); CREATININE FOR GFR 3.05 MG/DL (0.55-1.30); GLOMERULAR FILTRATION RATE 18.3 (>58); POTASSIUM SERUM 3.2 MMOL/L (3.5-5.1); SODIUM LEVEL 136.0 MMOL/L (136-145)
[2025-05-01] MEDS: CEFEPIME HCL 2 GM in DEXTROSE 5% (D5W) ADV/MINI-BAG 50 ML IV ONE (10:36)
[2025-05-01 11:00] LABS: KETONE, URINE AUTO RFX TRACE mg/dL (NEGATIVE); MUCUS, URINE RFX SMALL (NEGATIVE); NITRITE, URINE AUTO RFX NEGATIVE (NEGATIVE); RBC, URINE AUTO RFX 0 /HPF (0-3); SQUAM EPITHELIAL CELL UR AURFX 13 /HPF (0-6)
[2025-05-01 11:03] LABS: LEUKOCYTE ESTERASE UR AUTO RFX 1+ (NEGATIVE); WBC, URINE AUTO RFX 18 /HPF (0-3)
[2025-05-01] MEDS: POTASSIUM CHLORIDE 10MEQ SR TABLET PO ONE (11:15)
[2025-05-01] MEDS ORDERED: MEROPENEM 2 GM in SODIUM CHLORIDE 0.9% INJ 100 ML IV SCH (13:30)
[2025-05-01] MEDS ORDERED: DEXTROSE 50% 50 ML SYRINGE IV PRN (13:50)
[2025-05-01] MEDS ORDERED: GLUCOSE 4 GM CHEW PO PRN (13:50)
[2025-05-01] MEDS ORDERED: GLUCAGON INJ 1 MG VIAL SC PRN (13:50)
[2025-05-01] MEDS ORDERED: PILL CUTTER 1 EACH XX PRN (14:00)
[2025-05-01 14:26] LABS: INR 1.14
[2025-05-01] MEDS: FAMOTIDINE 20 MG TAB PO SCH (14:59)
[2025-05-01] MEDS: TORSEMIDE 100 MG TAB PO SCH (15:00)
[2025-05-01] MEDS: OMEPRAZOLE 20MG CAP PO SCH (15:00)
[2025-05-01] MEDS: HEPARIN SOD 5000 UNITS/ML 1 ML VIAL/SYRINGE SC SCH (15:07)
[2025-05-01 15:13] LABS: ESTIMATED AVERAGE GLUCOSE 194.0 MG/DL (60-110)
[2025-05-01 16:00] VITALS: BP 121/70; TEMP 98.8; O2SAT 97
[2025-05-01] MEDS: ACETAMINOPHEN 325 MG TAB PO PRN (18:16)
[2025-05-01] MEDS: INSULIN LISPRO (NovoLOG) PER UNIT SC SCH ×2 (18:16→21:00)
[2025-05-01] MEDS: LINEZOLID 600 MG in IV 1 EA IV SCH (18:16)
[2025-05-01] MEDS ORDERED: MEROPENEM 500 MG in IV 1 EA IV SCH (19:00)
[2025-05-01 19:16] VITALS: BP 136/61; TEMP 103.8; O2SAT 94
[2025-05-01 21:35] VITALS: TEMP 100.5
[2025-05-01 23:44] VITALS: BP 107/55; TEMP 100.5; O2SAT 92
[2025-05-02] VITALS (8 sets, daily range): BP systolic 107–138; BP diastolic 57–74; TEMP 97–101.5; O2SAT 94–96
[2025-05-02 05:34] LABS: PLATELET COUNT, AUTOMATED 138 10^3/uL (150-450)
[2025-05-02 06:02] LABS: ALT/SGPT 17.0 U/L (7.0-40); AST/SGOT 36.0 U/L (<34); CALCIUM LEVEL 8.7 MG/DL (8.5-10.1); CARBON DIOXIDE LEVEL 22.0 MMOL/L (20-31); CHLORIDE LEVEL 100.0 MMOL/L (98-107); CREATININE FOR GFR 3.94 MG/DL (0.55-1.30); GLOMERULAR FILTRATION RATE 13.5 (>58); POTASSIUM SERUM 3.8 MMOL/L (3.5-5.1); SODIUM LEVEL 141.0 MMOL/L (136-145)
[2025-05-02] MEDS: MORPHINE 2 MG/ML 1 ML VIAL IV ONE (09:18)
[2025-05-02] MEDS: LanTUS (INSULIN GLARGINE INJ) 1 UNITS/0.01 ML SC SCH (09:27)
[2025-05-02] MEDS: ceFAZolin SODIUM 3 GM in DEXTROSE 5% (D5W) MINI-BAG PLU 100 ML IV ONE (15:48)
[2025-05-02] MEDS ORDERED: CEFEPIME HCL 1 GM in DEXTROSE 5% (D5W) ADV/MINI-BAG 50 ML IV SCH (16:00)
[2025-05-02] MEDS ORDERED: ceFAZolin SOD 1 GM in DEXTROSE 5% (D5W) ADV/MINI-BAG 50 ML IV SCH (16:00)
[2025-05-02] MEDS: LIDOCAINE 1% MDV 20 ML VIAL SC STA (16:12)
[2025-05-03] VITALS (7 sets, daily range): BP systolic 106–129; BP diastolic 59–74; TEMP 97.7–100.7; O2SAT 95–98
[2025-05-03 06:10] LABS: PLATELET COUNT, AUTOMATED 149 10^3/uL (150-450)
[2025-05-03 06:33] LABS: ALT/SGPT 14.0 U/L (7.0-40); AST/SGOT 32.0 U/L (<34); CALCIUM LEVEL 8.5 MG/DL (8.5-10.1); CARBON DIOXIDE LEVEL 26.0 MMOL/L (20-31); CHLORIDE LEVEL 96.0 MMOL/L (98-107); CREATININE FOR GFR 4.07 MG/DL (0.55-1.30); GLOMERULAR FILTRATION RATE 13.0 (>58); POTASSIUM SERUM 3.1 MMOL/L (3.5-5.1); SODIUM LEVEL 137.0 MMOL/L (136-145)
[2025-05-03] MEDS: POTASSIUM CHLORIDE 10MEQ SR TABLET PO SCH (09:31)
[2025-05-03 15:13] LABS: CALCIUM LEVEL 9.2 MG/DL (8.5-10.1); CARBON DIOXIDE LEVEL 25.0 MMOL/L (20-31); CHLORIDE LEVEL 93.0 MMOL/L (98-107); CREATININE FOR GFR 4.02 MG/DL (0.55-1.30); GLOMERULAR FILTRATION RATE 13.2 (>58); POTASSIUM SERUM 3.2 MMOL/L (3.5-5.1); SODIUM LEVEL 135.0 MMOL/L (136-145)
[2025-05-03 22:53] LABS: CALCIUM LEVEL 8.0 MG/DL (8.5-10.1); CARBON DIOXIDE LEVEL 25.0 MMOL/L (20-31); CHLORIDE LEVEL 94.0 MMOL/L (98-107); CREATININE FOR GFR 4.01 MG/DL (0.55-1.30); GLOMERULAR FILTRATION RATE 13.2 (>58); MAGNESIUM LEVEL 1.7 MG/DL (1.8-2.4); POTASSIUM SERUM 3.1 MMOL/L (3.5-5.1); SODIUM LEVEL 136.0 MMOL/L (136-145)
[2025-05-03] MEDS: POTASSIUM CHLORIDE 10MEQ SR TABLET PO ONE (23:55)
[2025-05-03] MEDS: MAG SULF 1GM/100ML (MAG RUN) 1 GM in IV 1 EA IV SCH (23:58)
[2025-05-04] VITALS (8 sets, daily range): BP systolic 104–132; BP diastolic 58–70; TEMP 97.4–98.5; O2SAT 94–97
[2025-05-04 04:02] LABS: CALCIUM LEVEL 8.2 MG/DL (8.5-10.1); CARBON DIOXIDE LEVEL 26.0 MMOL/L (20-31); CHLORIDE LEVEL 94.0 MMOL/L (98-107); CREATININE FOR GFR 3.81 MG/DL (0.55-1.30); GLOMERULAR FILTRATION RATE 14.1 (>58); MAGNESIUM LEVEL 2.4 MG/DL (1.8-2.4); POTASSIUM SERUM 3.3 MMOL/L (3.5-5.1); SODIUM LEVEL 134.0 MMOL/L (136-145)
[2025-05-04] MEDS: POTASSIUM CHLORIDE 10MEQ SR TABLET PO ONE (05:45)
[2025-05-04 06:32] LABS: PLATELET COUNT, AUTOMATED 133 10^3/uL (150-450)
[2025-05-04 06:51] LABS: ERYTHROCYTE SEDIMENTATION RATE 64 mm/hr (0-20)
[2025-05-04 06:59] LABS: ALT/SGPT 15.0 U/L (7.0-40); AST/SGOT 41.0 U/L (<34); CALCIUM LEVEL 8.4 MG/DL (8.5-10.1); CARBON DIOXIDE LEVEL 27.0 MMOL/L (20-31); CHLORIDE LEVEL 94.0 MMOL/L (98-107); CREATININE FOR GFR 3.79 MG/DL (0.55-1.30); GLOMERULAR FILTRATION RATE 14.1 (>58); MAGNESIUM LEVEL 2.5 MG/DL (1.8-2.4); POTASSIUM SERUM 3.5 MMOL/L (3.5-5.1); SODIUM LEVEL 136.0 MMOL/L (136-145)
[2025-05-04 07:40] LABS: C REACTIVE PROTEIN QUANTITATIV 17.07 MG/DL (<1.0)
[2025-05-04] MEDS: ceFAZolin SOD 1 GM in DEXTROSE 5% (D5W) ADV/MINI-BAG 50 ML IV SCH (16:09)
[2025-05-05] VITALS (8 sets, daily range): BP systolic 101–138; BP diastolic 57–91; TEMP 97–98.1; O2SAT 94–97
[2025-05-05 04:49] LABS: PLATELET COUNT, AUTOMATED 140 10^3/uL (150-450)
[2025-05-05 05:08] LABS: ALT/SGPT 14.0 U/L (7.0-40); AST/SGOT 29.0 U/L (<34); CALCIUM LEVEL 8.7 MG/DL (8.5-10.1); CARBON DIOXIDE LEVEL 26.0 MMOL/L (20-31); CHLORIDE LEVEL 97.0 MMOL/L (98-107); CREATININE FOR GFR 3.2 MG/DL (0.55-1.30); GLOMERULAR FILTRATION RATE 17.3 (>58); POTASSIUM SERUM 3.0 MMOL/L (3.5-5.1); SODIUM LEVEL 139.0 MMOL/L (136-145)
[2025-05-05] MEDS: POTASSIUM CHLORIDE 10MEQ SR TABLET PO ONE (06:32)
[2025-05-05] MEDS: POTASSIUM CHLORIDE 10MEQ SR TABLET PO SCH (09:12)
[2025-05-05 12:14] LABS: CREATININE 24 HOUR, URINE 1337.9 MG/24HR (600-1800); CREATININE, URINE 78.7 MG/DL
[2025-05-06 03:57] VITALS: BP 106/58; TEMP 97; O2SAT 94
[2025-05-06 05:20] LABS: PLATELET COUNT, AUTOMATED 145 10^3/uL (150-450)
[2025-05-06 05:46] LABS: ALT/SGPT 13.0 U/L (7.0-40); AST/SGOT 25.0 U/L (<34); CALCIUM LEVEL 8.8 MG/DL (8.5-10.1); CARBON DIOXIDE LEVEL 25.0 MMOL/L (20-31); CHLORIDE LEVEL 98.0 MMOL/L (98-107); CREATININE FOR GFR 2.81 MG/DL (0.55-1.30); GLOMERULAR FILTRATION RATE 20.2 (>58); POTASSIUM SERUM 3.3 MMOL/L (3.5-5.1); SODIUM LEVEL 139.0 MMOL/L (136-145)
[2025-05-06 07:55] VITALS: BP 115/79; TEMP 97.6; O2SAT 95
[2025-05-06 08:01] VITALS: BP 115/79
[2025-05-06 12:28] VITALS: BP 110/68; TEMP 97.3; O2SAT 94
[2025-05-06 16:27] VITALS: BP 119/78; TEMP 97.8; O2SAT 94
[2025-05-06] MEDS: POTASSIUM CHLORIDE 10MEQ SR TABLET PO SCH (16:58)
[2025-05-06 19:05] VITALS: BP 108/57; TEMP 97.5; O2SAT 96
[2025-05-07 03:30] VITALS: BP 104/59; TEMP 97.3; O2SAT 98
[2025-05-07 06:07] LABS: PLATELET COUNT, AUTOMATED 182 10^3/uL (150-450)
[2025-05-07 06:28] LABS: ALT/SGPT 12.0 U/L (7.0-40); AST/SGOT 25.0 U/L (<34); CALCIUM LEVEL 8.7 MG/DL (8.5-10.1); CARBON DIOXIDE LEVEL 25.0 MMOL/L (20-31); CHLORIDE LEVEL 101.0 MMOL/L (98-107); CREATININE FOR GFR 2.66 MG/DL (0.55-1.30); GLOMERULAR FILTRATION RATE 21.6 (>58); POTASSIUM SERUM 4.0 MMOL/L (3.5-5.1); SODIUM LEVEL 141.0 MMOL/L (136-145)
[2025-05-07 08:16] VITALS: BP 121/73; TEMP 97.5; O2SAT 98
[2025-05-07] MEDS: ceFAZolin SOD 1 GM in DEXTROSE 5% (D5W) ADV/MINI-BAG 50 ML IV SCH (10:40)
[2025-05-07] MEDS ORDERED: POTA-136 PO (13:47)
[2025-05-07 15:25] LABS: C REACTIVE PROTEIN QUANTITATIV 5.32 MG/DL (<1.0)
== END 2025-05-07 16:27 | disposition home or self-care (01) | DRG 314 ==
LOC: M ED 08:45 → M ED INP 13:15 → M PCU 16:05
PROVIDERS: ADMIT Internal Medicine; ATTEND Internal Medicine
PROC: B246ZZZ Ultrasonography of Right and Left Heart (ICD-10-PCS; 2025-05-02)
PROC: 0JPTXXZ Removal of Tunneled Vascular Access Device from Trunk Subcutaneous Tissue and Fascia, External Approach (ICD-10-PCS; principal; 2025-05-02 15:00)
DX: T82.7XXA Infection and inflammatory reaction due to other cardiac and vascular devices, implants and grafts, initial encounter (principal); A41.01 Sepsis due to Methicillin susceptible Staphylococcus aureus; N18.6 End stage renal disease; N39.0 Urinary tract infection, site not specified; I12.0 Hypertensive chronic kidney disease with stage 5 chronic kidney disease or end stage renal disease; N25.81 Secondary hyperparathyroidism of renal origin; E11.22 Type 2 diabetes mellitus with diabetic chronic kidney disease; E66.9 Obesity, unspecified; E78.5 Hyperlipidemia, unspecified; D64.9 Anemia, unspecified; K21.9 Gastro-esophageal reflux disease without esophagitis; N25.0 Renal osteodystrophy; Z79.4 Long term (current) use of insulin; Z79.899 Other long term (current) drug therapy; Z88.1 Allergy status to other antibiotic agents; Z88.8 Allergy status to other drugs, medicaments and biological substances; Z99.2 Dependence on renal dialysis

== ENCOUNTER 2025-05-07 16:52 | Outpatient (CLI) | payer MEDICARE, MEDICAID ==
[~2025-05-07] VITALS: Ht 154.9 cm; Wt 137.4 kg
[~2025-05-07 16:52] MED LIST changes: +OMEP10CASR PO; +POTA-136 PO; +TORS100T PO
[2025-05-07 17:25] VITALS: BP 128/88; O2SAT 98
[2025-05-07] MEDS: DALBAVANCIN 1,500 MG in D5W 250 ML IV ONE (17:37)
[2025-05-07 18:15] VITALS: BP 130/87; O2SAT 98
== END 2025-05-07 18:15 | disposition home or self-care (01) ==
LOC: M INFU 16:52
PROVIDERS: ATTEND Internal Medicine
DX: A41.01 Sepsis due to Methicillin susceptible Staphylococcus aureus (principal); Z88.1 Allergy status to other antibiotic agents; Z88.8 Allergy status to other drugs, medicaments and biological substances